=== PATIENT | female | born 1930 | race Caucasian/White ===

== ENCOUNTER → 2017-01-13 | Outpatient (CLI) | payer OTHER ==
[~2017-01-13] MED LIST: ACEB200C PO; ASPCH81 PO; ASPCH81X PO; CHOL1000 PO; CHOL100010 PO; CIPR-255 PO; PSYL55.43 PO; SIMV40TA2 PO
[2017-01-13 11:42] LABS: BASO % 0.6 %; BASO ABS # 0.03 K/uL (0-0.2); COMPLETE YES; EOS % 0.8 %; IG% 0.2 %; LYMPH ABS # 1.28 K/uL (1.2-3.4); MEAN CORPUSCULAR HEMOGLOBIN 31.3 pg (25-34); MEAN CORPUSCULAR HGB CONC 33.6 g/dl (32-36); MEAN PLATELET VOLUME 9.9 fL (7.4-10.4); MONO % 12.5 %; NEUT % 60.9 %; PLATELET COUNT 190 K/uL (130-400); RED BLOOD COUNT 4.73 M/uL (4.2-5.4); WHITE BLOOD COUNT 5.13 K/uL (4.8-10.8)
--- NOTE | 2017-01-13 11:56 | DIAGNOSTIC IMAGING REPORT ---
CHEST 2 VIEWS ROUTINE CLINICAL HISTORY: COUGH dyspnea COMPARISON STUDY: 06/29/2013 FINDINGS: Mild bibasilar chronic interstitial change at both lung bases. Mid to upper lungs are clear. Chronic apical pleural thickening bilaterally. IMPRESSION: Chronic basilar interstitial change. No acute process. Electronically signed by: Deon Mcbride M.D. 01/13/2017 11:55 AM Dictated Date/Time: 01/13/2017 11:53 AM
== END | disposition home or self-care (01) ==
LOC: C.LAB 10:41
PROVIDERS: ATTEND Internal Medicine Critical Care Medicine
DX: R50.9 Fever, unspecified (principal); J18.9 Pneumonia, unspecified organism; R05 Cough; J11.1 Influenza due to unidentified influenza virus with other respiratory manifestations; J84.9 Interstitial pulmonary disease, unspecified

== ENCOUNTER 2017-01-19 23:58 | Emergency (ER) | payer OTHER ==
[~2017-01-19] VITALS: Ht 172.7 cm; Wt 78.9 kg
[~2017-01-19 23:58] MED LIST changes: -ASPCH81X PO; -CHOL1000 PO
[2017-01-20 00:03] VITALS: TEMP 36.7; Ht 172.7 cm; Wt 78.9 kg
[2017-01-20] MEDS ORDERED: ONDANSETRON INJ 2 MG/ML 2 ML VIAL IV STA (00:21)
[2017-01-20] MEDS ORDERED: SODIUM CHLORIDE 0.9% 1000ML 1,000 ML IV STA (00:21)
--- NOTE | 2017-01-20 00:37 | EMERGENCY ROOM VISIT NOTE ---
History Report prepared by Rahul: Salvador Tinoco Under the Supervision of: Dr. Constance Ahumada M.D. First contact with patient: 00:01 Chief Complaint: ILLNESS Stated Complaint: GENERALIZED WEAKNESS/ILLNESS History of Present Illness The patient is an 86 year old female who presents to the Emergency Room with complaints of a constant generalized illness that began 10 days prior to arrival. She complains of global weakness and nausea that has affected her appetite. She also noted intermittent headaches and dizziness. Tonight she felt the worst that she has had in the past ten days. She went to see her PCP 10 days ago and received an influenza swab and a chest x-ray. These tests did not reveal any outstanding results. She denies any chest pain or vomiting. Onset: 10 days [employer]UTTLE [employer]UCK [employer] Position: other (Global) Quality: other (Generalized Illness) Timing: constant Associated Symptoms: + headache, + nausea, + weakness, No chest pain, No vomiting Review of Systems See HPI for pertinent positives & negatives. A total of 10 systems reviewed and were otherwise negative. Past Medical & Surgical Medical Problems: (1) Anemia Nos (2) Hepatitis Nos (3) History of tonsillectomy Family History No pertinent family history secondary to age. Social History Smoking Status: Never Smoker Drug Use: none Marital Status: Housing Status: lives with significant other Occupation Status: retired Current/Historical Medications Scheduled Acebutolol Hcl (Sectral Cap), 400 MG PO DAILY Aspirin (Aspirin Chewable), 81 MG PO DAILY Cholecalciferol (Vitamin D3), 1,000 INTUNIT PO DAILY Simvastatin (Zocor), 40 MG PO QPM Allergies Coded Allergies: No Known Allergies (Unverified , 01/20/17) Physical Exam Vital Signs Date Time Temp Pulse Resp B/P Pulse Ox O2 Delivery O2 Flow Rate FiO2 01/20/17 03:42 93 20 131/75 96 01/20/17 02:46 78 20 160/80 96 Room Air 01/20/17 01:01 83 20 153/84 96 Room Air 01/20/17 00:11 99 01/20/17 00:03 36.7 105 20 168/109 97 Room Air Physical Exam Vital signs reviewed. General: Well-appearing female, in no significant distress. HEENT: No scleral icterus, PERRLA, neck supple. Atraumatic. Cardiovascular: Regular rate and rhythm, no extra sounds. Pulmonary: Clear to auscultation bilaterally, normal work of breathing. Abdomen: Soft, nontender, nondistended, positive bowel sounds. Musculoskeletal: Atraumatic, no peripheral edema. Neurologic: Patient awake alert and oriented x 3, full strength in all 4 extremities. Cranial nerves 2 through 12 grossly intact. Skin: Warm, dry, no rash Medical Decision & Procedures ER Provider Diagnostic Interpretation: X-ray results as stated below per interpretation by me: CHEST X-RAY: Interstitial prominence to bilateral lung lowery no change from previous. Laboratory Results 01/20/17 00:47 Red Blood Count 4.15, Mean Corpuscular Volume 93.3, Mean Corpuscular Hemoglobin 31.1, Mean Corpuscular Hemoglobin Concent 33.3, Mean Platelet Volume 9.9, Neutrophils (%) (Auto) 65.3, Lymphocytes (%) (Auto) 22.7, Monocytes (%) (Auto) 10.3, Eosinophils (%) (Auto) 0.9, Basophils (%) (Auto) 0.3, Neutrophils # (Auto ) 6.87, Lymphocytes # (Auto) 2.39, Monocytes # (Auto) 1.08, Eosinophils # (Auto ) 0.09, Basophils # (Auto) 0.03 01/20/17 00:47 Test 01/20/17 00:47 01/20/17 00:53 01/20/17 02:00 01/20/17 02:25 White Blood Count 10.51 K/uL (4.8-10.8) Red Blood Count 4.15 M/uL (4.2-5.4) Hemoglobin 12.9 g/dL (12.0-16.0) Hematocrit 38.7 % (37-47) Mean Corpuscular Volume 93.3 fL (80-100) Mean Corpuscular Hemoglobin 31.1 pg (25-34) Mean Corpuscular Hemoglobin Concent 33.3 g/dl (32-36) Platelet Count 273 K/uL (130-400) Mean Platelet Volume 9.9 fL (7.4-10.4) Neutrophils (%) (Auto) 65.3 % Lymphocytes (%) (Auto) 22.7 % Monocytes (%) (Auto) 10.3 % Eosinophils (%) (Auto) 0.9 % Basophils (%) (Auto) 0.3 % Neutrophils # (Auto) 6.87 K/uL (1.4-6.5) Lymphocytes # (Auto) 2.39 K/uL (1.2-3.4) Monocytes # (Auto) 1.08 K/uL (0.11-0.59) Eosinophils # (Auto) 0.09 K/uL (0-0.5) Basophils # (Auto) 0.03 K/uL (0-0.2) RDW Standard Deviation 45.7 fL (36.4-46.3) RDW Coefficient of Variation 13.4 % (11.5-14.5) Immature Granulocyte % (Auto) 0.5 % Immature Granulocyte # (Auto) 0.05 K/uL (0.00-0.02) Anion Gap 11.0 mmol/L (3-11) Est Creatinine Clear Calc Drug Dose 46.0 ml/min Estimated GFR () 62.4 Estimated GFR (Non- 53.9 BUN/Creatinine Ratio 27.3 (10-20) Calcium Level 8.9 mg/dl (8.5-10.1) Magnesium Level 2.3 mg/dl (1.8-2.4) Total Bilirubin 0.3 mg/dl (0.2-1) Direct Bilirubin < 0.1 mg/dl (0-0.2) Aspartate Amino Transf (AST/SGOT) 21 U/L (15-37) Alanine Aminotransferase (ALT/SGPT) 21 U/L (12-78) Alkaline Phosphatase 107 U/L (45-117) Total Creatine Kinase 52 U/L (26-192) Creatine Kinase MB 0.5 ng/ml (0.5-3.6) Creatine Kinase MB Ratio 1.0 (0-3.0) Total Protein 7.1 gm/dl (6.4-8.2) Albumin 3.1 gm/dl (3.4-5.0) Lipase 190 U/L (73-393) Bedside Troponin I 0.000 ng/ml (0-0.045) Urine Color YELLOW Urine Appearance CLEAR (CLEAR) Urine pH 5.5 (4.5-7.5) Urine Specific Wilmot 1.011 (1.000-1.030) Urine Protein NEG (NEG) Urine Glucose (UA) NEG (NEG) Urine Ketones NEG (NEG) Urine Occult Blood NEG (NEG) Urine Nitrite NEG (NEG) Urine Bilirubin NEG (NEG) Urine Urobilinogen NEG (NEG) Urine Leukocyte Esterase TRACE (NEG) Urine WBC (Auto) 1-5 /hpf (0-5) Urine RBC (Auto) 0-4 /hpf (0-4) Urine Hyaline Casts (Auto) 1-5 /lpf (0-5) Urine Epithelial Cells (Auto) 5-10 /lpf (0-5) Urine Bacteria (Auto) 1+ (NEG) Influenza Type A (RT-PCR) Neg for Influ A (NEG) Influenza Type A Antigen Neg for Influ A (NEG) Influenza Type B Antigen Neg for Influ B (NEG) Influenza Type B (RT-PCR) Neg for Influ B (NEG) Date/Time Source Procedure Growth Status 01/20/17 02:00 Urine , Clean Catch Urine Culture - Final Klebsiella Pneumoniae Complete Laboratory results per my review. Medications Administered Medications (Trade) Dose Ordered Sig/Daniel Route Start Time Stop Time Status Last Admin Dose Admin Sodium Chloride (Nss 1000ml) 1,000 ml @ 125 mls/hr Q8H STAT IV 01/20/17 00:21 01/20/17 04:45 DC 01/20/17 00:58 125 MLS/HR Ondansetron HCl (Zofran Inj) 4 mg NOW STAT IV 01/20/17 00:21 01/20/17 00:24 DC 01/20/17 01:00 4 MG Albuterol/ Ipratropium (Duoneb) 3 ml NOW STAT INH 01/20/17 02:22 01/20/17 02:23 DC 01/20/17 02:46 3 ML Albuterol (Ventolin Hfa Inhaler) 2 puffs NOW ONCE INH 01/20/17 03:30 01/20/17 03:31 DC 01/20/17 03:32 2 PUFFS Ondansetron HCl (ZOFRAN ODT 4MG Home Pack) 1 homepack UD ONCE PO 01/20/17 03:30 01/20/17 03:31 DC 01/20/17 03:32 1 HOMEPACK ECG Indication: weakness Rate (beats per minute): 99 Rhythm: normal sinus Findings: no acute ischemic change, no ectopy ED Course 0017: Past medical records reviewed. The patient was evaluated in room B4. A complete history and physical examination was performed. 0021: Ordered Zofran 4 mg IV, Sodium Chloride 1000 mL @ 125 mL/hr IV. 0222: Ordered Duoneb 3 mL INH. 0315: Upon reevaluation, the patient appeared to have improvement of her symptoms. I discussed findings with her. She verbalized agreement of the treatment plan. The patient was discharged home. Medical Decision Differential diagnosis: Etiologies such as metabolic, infection, hypo/hyperglycemia, electrolyte abnormalities, cardiac sources, intracerebral event, toxicologic, neurologic, as well as others were entertained. This pt was evaluate and appeared to be in no distress. IV access was obtained and lab work was drawn. 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 She was hydrated with NSS. Pt was given IV zofran and a duoneb tx. Lab work is fairly unrevealing. CXR is significant for prominent interstitial markings without significant changes from previous, to my interpretation. Pt was informed of the findings. She was d/c to the care of her to f/u with her PCP this week and to return to the ED for worsening of symptoms or any medical concerns. Impression Primary Impression: Reactive airway disease Additional Impressions: Viral respiratory illness Weakness Scribe Attestation The scribe's documentation has been prepared under my direction and personally reviewed by me in its entirety. I confirm that the note above accurately reflects all work, treatment, procedures, and medical decision making performed by me. Departure Information Dispostion Home / Self-Care Referrals [facility] (PCP) Forms HOME CARE DOCUMENTATION FORM, IMPORTANT VISIT INFORMATION, WORK / SCHOOL INSTRUCTIONS Patient Instructions My [facility] Additional Instructions Diagnosis: Acute respiratory illness, weakness, reactive airway disease Albuterol 2 puffs every 4 hours as needed for wheezing or cough. Drink plenty of clear fluids. Zofran 4 mg ODT every 6 hours as needed for nausea. Follow-up with your primary care physician this week for reevaluation. Return to the ER for worsening of symptoms or any medical concerns. Problem Qualifiers Primary Impression: Reactive airway disease Asthma severity: mild intermittent Asthma complication type: with acute exacerbation Qualified Codes: J45.21 - Mild intermittent asthma with (acute) exacerbation
[2017-01-20] MEDS ORDERED: ASPCH81X PO (00:57)
[2017-01-20 00:59] LABS: BASO % 0.3 %; BASO ABS # 0.03 K/uL (0-0.2); COMPLETE YES; EOS % 0.9 %; HEMATOCRIT 38.7 % (37-47); IG% 0.5 %; LYMPH % 22.7 %; LYMPH ABS # 2.39 K/uL (1.2-3.4); MEAN CELL VOLUME 93.3 fL (80-100); MEAN CORPUSCULAR HEMOGLOBIN 31.1 pg (25-34); MEAN CORPUSCULAR HGB CONC 33.3 g/dl (32-36); MEAN PLATELET VOLUME 9.9 fL (7.4-10.4); MONO % 10.3 %; NEUT % 65.3 %; PLATELET COUNT 273 K/uL (130-400); RED BLOOD COUNT 4.15 M/uL (4.2-5.4); WHITE BLOOD COUNT 10.51 K/uL (4.8-10.8)
[2017-01-20] MEDS ORDERED: CHOL1000 PO (00:59)
[2017-01-20 01:27] LABS: ALT/SGPT 21 U/L (12-78); AST/SGOT 21 U/L (15-37); BLOOD UREA NITROGEN 26 mg/dl (7-18); BUN/CREATININE RATIO 27.3 (10-20); CALCIUM 8.9 mg/dl (8.5-10.1); CARBON DIOXIDE 26 mmol/L (21-32); CHLORIDE 108 mmol/L (98-107); CREATININE 0.95 mg/dl (0.60-1.20); GLUCOSE 95 mg/dl (70-99); MAGNESIUM 2.3 mg/dl (1.8-2.4); POTASSIUM 4.2 mmol/L (3.5-5.1); SODIUM 145 mmol/L (136-145)
[2017-01-20 01:29] LABS: ALKALINE PHOSPHATASE 107 U/L (45-117)
[2017-01-20] MEDS ORDERED: ALBUT/IPRATROP 3MG/0.5MG NEB 3 ML VIAL INH STA (02:22)
[2017-01-20 02:29] LABS: URINE APPEARANCE CLEAR (CLEAR); URINE BILIRUBIN NEG (NEG); URINE COLOR YELLOW; URINE NITRITE NEG (NEG); URINE PH 5.5 (4.5-7.5); URINE SPECIFIC GRAVITY 1.011 (1.000-1.030); UROBILINOGEN NEG (NEG); ZZUR CULT IF INDIC CLEAN CATCH YES
[2017-01-20 02:34] LABS: MANUAL MICROSCOPIC REQUIRED? NO; REVIEW REQ? YES
[2017-01-20] MEDS ORDERED: ONDANSETRON HOME PACK 4MG OD TAB PO ONE (03:30)
[2017-01-20] MEDS ORDERED: ALBUTEROL HFA 8 GM INHALER INH ONE (03:30)
[2017-01-20 03:42] VITALS: BP 131/75; PULSE 93; O2SAT 96
[2017-01-20 04:35] LABS: INFLUENZA A PCR Neg for Influ A (NEG); INFLUENZA B PCR Neg for Influ B (NEG)
--- NOTE | 2017-01-20 06:58 | DIAGNOSTIC IMAGING REPORT ---
CHEST ONE VIEW PORTABLE CLINICAL HISTORY: cough, weakness COMPARISON STUDY: 01/13/2017 FINDINGS: The cardiac and mediastinal contours remain stable. There are increasing bilateral interstitial opacities with a lower lung zone predominance. The findings could be inflammatory or a reflection of interstitial edema. Clinical and radiographic follow-up is recommended. No significant pleural effusions are visualized.[ IMPRESSION: Increasing interstitial markings, a finding which could be a reflection of interstitial edema or an interstitial inflammatory process. Clinical and radiographic follow-up is recommended. Electronically signed by: Bakari Beard M.D. 01/20/2017 6:57 AM Dictated Date/Time: 01/20/2017 6:56 AM
== END 2017-01-20 03:44 | disposition home or self-care (01) ==
LOC: EDBD 23:58 → C.EDB 23:59
DX: J45.21 Mild intermittent asthma with (acute) exacerbation (principal); J06.9 Acute upper respiratory infection, unspecified; R53.1 Weakness; D64.9 Anemia, unspecified; K75.9 Inflammatory liver disease, unspecified; Z79.899 Other long term (current) drug therapy

== ENCOUNTER → 2017-05-16 | Outpatient (CLI) | payer OTHER ==
[~2017-05-16] MED LIST changes: -ASPCH81 PO; +ASPCH81X PO; +CHOL1000 PO; -CHOL100010 PO; -CIPR-255 PO; -PSYL55.43 PO
--- NOTE | 2017-05-16 13:27 | MAMMOGRAPHY REPORT ---
UNILATERAL RIGHT DIGITAL SCREENING MAMMOGRAM WITH CAD: 05/16/2017 CLINICAL HISTORY: Asymptomatic. Personal history of breast cancer. TECHNIQUE: Current study was also evaluated with a Computer Aided Detection (CAD) system. Right CC and MLO views were obtained. COMPARISON: Comparison is made to exams dated: 05/10/2015 mammogram, 05/13/2016 mammogram, 04/15/2014 m ammogram, 04/14/2013 mammogram, 04/13/2012 mammogram, and 10/11/2011 mammogram - [facility]. BREAST COMPOSITION: The tissue of the right breast is almost entirely fatty. FINDINGS: There are no suspicious masses, calcifications, or areas of architectural distortion noted within the right breast. There has been no significant interval change compared to prior exams. IMPRESSION: ACR BI-RADS CATEGORY 1: NEGATIVE There is no mammographic evidence of malignancy in the right breast. A 1 year screening mammogram is recommended. The patient will receive written notification of the results. Approximately 10% of breast cancers are not detected with mammography. A negative mammographic report should not delay biopsy if a clinically suggestive mass is present. Glenys Miller M.D. /:05/16/2017 09:16:29 Ladle Pourer: Helena STANFORD(Uzma)(Parmjit), [facility] letter sent: Normal 1/2 BI-RADS Code: ACR BI-RADS Category 1: Negative
== END | disposition home or self-care (01) ==
LOC: C.MAMM 08:41
PROVIDERS: ATTEND Obstetrics & Gynecology
DX: Z12.31 Encounter for screening mammogram for malignant neoplasm of breast (principal); Z90.12 Acquired absence of left breast and nipple; Z85.3 Personal history of malignant neoplasm of breast

== ENCOUNTER → 2018-07-01 | Outpatient (CLI) | payer OTHER ==
[~2018-07-01] MED LIST changes: +CEPH500C PO; -CHOL1000 PO
--- NOTE | 2018-07-02 14:57 | MAMMOGRAPHY REPORT ---
UNILATERAL RIGHT DIGITAL SCREENING MAMMOGRAM TOMOSYNTHESIS WITH CAD: 07/01/2018 CLINICAL HISTORY: Routine screening. Patient has no complaints. TECHNIQUE: The study was acquired using full field digital technology and interpreted from soft copy. Breast tomosynthesis in addition to standard 2D mammography was performed. Current study was also ev aluated with a Computer Aided Detection (CAD) system. COMPARISON: Comparison is made to exams dated: 05/16/2017 mammogram, 05/13/2016 mammogram, 05/10/2015 m ammogram, 04/15/2014 mammogram, 04/13/2012 mammogram, and 10/11/2011 mammogram - [facility]. BREAST COMPOSITION: The tissue of right breast is almost entirely fatty. FINDINGS: There are no suspicious masses, calcifications, or areas of architectural distortion noted within the right breast. There has been no significant interval change compared to prior exams. IMPRESSION: ACR BI-RADS CATEGORY 1: NEGATIVE There is no mammographic evidence of malignancy in the right breast. A 1 year screening mammogram is recommended.(07/02/2019) The patient will receive written notification of the results. Some breast cancers are not detected with mammography. A negative mammographic report should not olimpia y biopsy if a clinically suggestive mass is present. Glenys Miller M.D. ah/:07/01/2018 15:38:38 Electrical Tryout Person: Kim Mercado, [facility] letter sent: Normal 1/2 BI-RADS Code: ACR BI-RADS Category 1: Negative
== END | disposition home or self-care (01) ==
LOC: C.MAMM 14:56
PROVIDERS: ATTEND Internal Medicine Critical Care Medicine
DX: Z12.31 Encounter for screening mammogram for malignant neoplasm of breast (principal); Z90.12 Acquired absence of left breast and nipple